=== PATIENT | male | born 1995 | race African-American/Black ===

== ENCOUNTER → 2022-02-08 | Outpatient (CLI) | payer OTHER | LOC: MHCPAIN 07:57 | DX: M53.3 Sacrococcygeal disorders, not elsewhere classified (principal); M41.86 Other forms of scoliosis, lumbar region; M79.18 Myalgia, other site | CPT/HCPCS: G0463 ==

== ENCOUNTER → 2022-02-10 | Outpatient (CLI) | payer OTHER | LOC: MHCPAIN 07:29 | DX: M53.3 Sacrococcygeal disorders, not elsewhere classified (principal); M47.817 Spondylosis without myelopathy or radiculopathy, lumbosacral region | CPT/HCPCS: G0260; J1040; Q9967 ==